=== PATIENT | male | born 2000 | race Caucasian/White ===

== ENCOUNTER 2020-06-28 15:13 | Emergency (ER) | payer OTHER ==
[~2020-06-28] VITALS: Ht 185.4 cm; Wt 81.8 kg
[2020-06-28 15:14] VITALS: BP 141/74
[2020-06-28] MEDS ORDERED: ONDANSETRON 4 MG ORAL DISINTEGRATING TAB PO ONE (15:35)
[2020-06-28] MEDS ORDERED: KETOROLAC 30 MG/ML 1ML VIAL IM ONE (15:35)
--- NOTE | 2020-06-28 15:41 | REP ---
INDICATION: trauma COMPARISON: None. TECHNIQUE: Three views left shoulder. FINDINGS: There is no evidence of acute fracture, dislocation, or intrinsic bone disease. IMPRESSION: No fracture or dislocation. <Electronically signed by Cristian Bowers > 06/28/20 [id number]
--- NOTE | 2020-06-28 15:42 | REP ---
INDICATION: trauma COMPARISON: None. TECHNIQUE: Four views right ankle. FINDINGS: There is no evidence of acute fracture, dislocation, or intrinsic bone disease.The ankle mortise is anatomic. IMPRESSION: No fracture or dislocation. <Electronically signed by Cristian Bowers > 06/28/20 [id number]
== END 2020-06-28 17:00 | disposition home or self-care (01) ==
LOC: M ED 15:13
DX: S90.01XA Contusion of right ankle, initial encounter (principal); S40.012A Contusion of left shoulder, initial encounter; W19.XXXA Unspecified fall, initial encounter; Y92.9 Unspecified place or not applicable; Y93.02 Activity, running; Y99.9 Unspecified external cause status
CPT/HCPCS: 73030; 73610; 96372; 99284; J1885; Q0162